=== PATIENT | male | born 1945 | race Caucasian/White ===

== ENCOUNTER → 2018-09-17 13:03 | Outpatient (CLI) | payer OTHER, SELFPAY ==
[2018-09-03 15:03] VITALS: BMI 30.9
--- NOTE | 2018-09-17 13:14 | ECHOD_ITS ---
Reason For Study: VALVE REPLACMENT EVAL Procedure This was a 2D Doppler, Color Flow transthoracic echocardiogram. Exam performed in department. Left Ventricle Moderate concentric left ventricular hypertrophy. The estimated ejection fraction is 60 %. Septal motion consistent with IVCD. Stage 2 diastolic dysfunction. No regional wall motion abnormalities noted. Right Ventricle Normal size and thickness. ICD or pacer leads identified within the right ventricle. Normal systolic function. Atria The left atrium is severely enlarged. Normal right atrium. ICD or pacer leads identified within the right atrium. Normal atrial septum. Mitral Valve Mild diffuse mitral valve thickening. Severe mitral annular calcification extending into the posterior leaflet. Mild (1+) mitral valve insufficiency. Tricuspid Valve Normal tricuspid valve. Mild (1+) tricuspid valve insufficiency. Right ventricular systolic pressure estimated to be 53 mmHg. Moderate pulmonary hypertension. Aortic Valve Bioprosthetic aortic valve. Stable appearing bioprosthetic aortic valve apparatus. Pulmonic Valve Normal pulmonic valve. Great Vessels Normal aortic root. Normal arch. Normal inferior vena cava. Inferior vena cava collapse with sniff. Pericardium/Pleural No pericardial effusion. MMode/2D Measurements & Calculations LVIDd: 3.3 cm IVSd: 1.7 cm LVOT diam: 2.0 cm LVIDs: 2.6 cm LVPWd: 1.5 cm LVOT area: 3.1 cm2 FS: 23.0 % Ao root diam: 4.3 cm LAV(MOD-bp): 102.5 ml LVAd ap4: 43.5 cm2 LA dimension: 4.8 cm LAV(MOD-bp) Indexed: 57.9 ml/m2 EDV(MOD-sp4): 159.5 ml LAV(MOD-sp2): 96.9 ml EDV(sp4-el): 173.0 ml LAV(MOD-sp4): 99.8 ml LVAs ap4: 29.9 cm2 ESV(MOD-sp4): 78.2 ml ESV(sp4-el): 83.9 ml EF(MOD-sp4): 51.0 % EF(sp4-el): 51.5 % SV(MOD-sp4): 81.3 ml SV(sp4-el): 89.1 ml LA A4 area: 27.0 cm2 RA A4 area: 18.9 cm2 Time Measurements MV dec time: 0.24 sec Doppler Measurements & Calculations MV E max tip: 123.8 cm/sec Lat Peak E' Tip: 4.7 cm/sec Med Peak E' Tip: 4.5 cm/sec MV A max tip: 112.4 cm/sec E/E' lat: 26.6 E/E' med: 27.4 MV E/A: 1.1 Ao V2 max: 266.7 cm/sec LV V1 max: 105.6 cm/sec SV(LVOT): 77.1 ml Ao max P.4 mmHg LV V1 max P.5 mmHg Ao V2 mean: 194.9 cm/sec LV V1 mean P.2 mmHg Ao mean P.3 mmHg LV V1 mean: 69.4 cm/sec Ao V2 VTI: 58.2 cm LV V1 VTI: 25.1 cm AI(I,D): 1.3 cm2 AI(V,D): 1.2 cm2 PA V2 max: 109.4 cm/sec TR max tip: 345.6 cm/sec TR max P.8 mmHg Interpretation Summary Moderate concentric left ventricular hypertrophy. The estimated ejection fraction is 60 %. Stage 2 diastolic dysfunction. The left atrium is severely enlarged. Mild (1+) mitral valve insufficiency. Mild (1+) tricuspid valve insufficiency. Right ventricular systolic pressure estimated to be 53 mmHg. Moderate pulmonary hypertension. Stable appearing bioprosthetic aortic valve apparatus. Compared to echo report dated 12/17/2012, LV function has improved from 25% to 60%. Ordering Physician: Marcos Russo Referring Physician: Marcos Russo Performed By: Jessica Mackenzie RDCS
[2018-09-17 14:14] LABS: AST(SGOT) 24 U/L (15-37); Alanine Aminotransfer ALT/SGPT 29 U/L (16-61); Albumin, Serum 3.9 g/dL (3.2-5.0); Alkaline Phosphatase 85 U/L (45-117); Cholesterol 264 mg/dL (200); Globulin 3.7 g/dL (2.2-4.2); High Density Lipoprotein 74 mg/dL; Protein, Total 7.6 g/dL (6.4-8.2); Triglycerides 79 mg/dL; Very Low Density Lipoprotein 16 mg/dL (5-40)
== END ==
PROVIDERS: Referring Provider Internal Medicine Cardiovascular Disease; Visit Provider Internal Medicine Cardiovascular Disease
DX: I25.10 Atherosclerotic heart disease of native coronary artery without angina pectoris (principal); Z95.0 Presence of cardiac pacemaker; Z95.1 Presence of aortocoronary bypass graft; Z95.3 Presence of xenogenic heart valve; E78.5 Hyperlipidemia, unspecified
CPT/HCPCS: 36415; 80061; 80076; 93306

== ENCOUNTER → 2019-05-20 08:56 | Outpatient (CLI) | payer OTHER, SELFPAY ==
[2019-04-14 15:28] VITALS: BMI 29.6
[2019-05-20 11:20] LABS: AST(SGOT) 21 U/L (15-37); Alanine Aminotransfer ALT/SGPT 39 U/L (16-61); Albumin, Serum 3.6 g/dL (3.2-5.0); Alkaline Phosphatase 79 U/L (45-117); Bilirubin, Direct 0.15 mg/dL (0.00-0.30); Cholesterol 231 mg/dL (200); Globulin 3.7 g/dL (2.2-4.2); High Density Lipoprotein 68 mg/dL; Protein, Total 7.3 g/dL (6.4-8.2); Triglycerides 141 mg/dL; Very Low Density Lipoprotein 28 mg/dL (5-40)
== END ==
PROVIDERS: Referring Provider Internal Medicine Cardiovascular Disease; Visit Provider Internal Medicine Cardiovascular Disease
DX: I25.10 Atherosclerotic heart disease of native coronary artery without angina pectoris (principal); E78.5 Hyperlipidemia, unspecified
CPT/HCPCS: 36415; 80061; 80076

== ENCOUNTER → 2024-10-28 | Outpatient (CLI) | payer SELFPAY, OTHER ==
--- NOTE | 2024-10-28 08:46 | ECHOCS_ITS ---
Reason For Study: Afib, Aflutter Procedure This was a 2D Doppler, Color Flow transthoracic echocardiogram. Myocardial strain analysis was performed in this exam to aid in the assessment of cardiac function. Contrast injection was performed. Exam performed in department. Left Ventricle Normal LV size. The left ventricular ejection fraction is 25 %. Apical wall motion abnormality may reflect pacemaker activation. Right Ventricle Normal RV size. ICD or pacer leads identified within the right ventricle. Normal systolic function. Atria The left atrium is severely enlarged. The right atrium is mildly enlarged. ICD or pacer leads identified within the right atrium. Mitral Valve There is moderate mitral annular calcification. Mild-Moderate (1-2+) eccentric mitral valve insufficiency. Tricuspid Valve Normal tricuspid valve. Mild to moderate (1-2+) tricuspid valve insufficiency. Pulmonary artery systolic pressure is 60 mmHg. Aortic Valve Bioprosthetic aortic valve. Pulmonic Valve Normal pulmonic valve. Mild (1+) pulmonic valve insufficiency. Great Vessels Normal aortic root. The pulmonary artery is normal size. and partially collapses. Pericardium/Pleural No pericardial effusion. Medication Diluted definity 3ml given slow IV push to enhance endocardial definition. MMode/2D Measurements & Calculations LVIDd: 4.1 cm IVSd: 1.4 cm LVOT diam: 1.9 cm LVIDs: 3.6 cm LVPWd: 1.0 cm RVDd: 3.6 cm FS: 13.4 % LVOT area: 2.7 cm2 asc Aorta Diam: 3.7 cm LAV(MOD-bp): 122.7 ml LVAd ap4: 36.0 cm2 LAV(MOD-bp) Indexed: 73.0 ml/m2 LVLd ap4: 8.3 cm LAV(MOD-sp2): 116.0 ml EDV(MOD-sp4): 128.0 ml LAV(MOD-sp4): 119.9 ml EDV(sp4-el): 133.4 ml LVAs ap4: 32.2 cm2 LVLs ap4: 8.4 cm ESV(MOD-sp4): 100.8 ml ESV(sp4-el): 104.9 ml EF(MOD-sp4): 21.2 % EF(sp4-el): 21.3 % SV(MOD-sp4): 27.2 ml SV(sp4-el): 28.5 ml LA A4 area: 31.9 cm2 SI(MOD-sp4): 16.1 ml/m2 LA dimension(2D): 5.2 cm RA A4 area: 23.5 cm2 TAPSE: 0.83 cm Doppler Measurements & Calculations MV E max tip: 118.7 cm/sec Lat Peak E' Tip: 4.8 cm/sec Med Peak E' Tip: 3.3 cm/sec E/E' lat: 24.9 E/E' med: 35.4 MV V2 max: 122.1 cm/sec Ao V2 max: 195.9 cm/sec LV V1 max: 107.0 cm/sec MV max P.0 mmHg Ao max P.4 mmHg LV V1 max P.6 mmHg MV V2 mean: 72.1 cm/sec Ao V2 mean: 144.0 cm/sec LV V1 mean P.4 mmHg MV mean P.6 mmHg Ao mean P.3 mmHg LV V1 mean: 70.4 cm/sec MV V2 VTI: 30.2 cm Ao V2 VTI: 34.6 cm LV V1 VTI: 19.1 cm AV (velocity ratio): 0.55 MVA(VTI): 1.7 cm2 AI(I,D): 1.5 cm2 AI(V,D): 1.5 cm2 SV(LVOT): 52.0 ml PA V2 max: 70.2 cm/sec TR max tip: 368.1 cm/sec TR max P.2 mmHg ECHO/Echo Complete W/ Contrast Interpretation Summary Normal LV size. The left ventricular ejection fraction is 25 %. The left atrium is severely enlarged. Pulmonary artery systolic pressure is 60 mmHg. Bioprosthetic aortic valve. The global longitudinal strain is severely abnormal. The global longitudinal st rain = -5.1% (abnormal). Ordering Physician: Simon Whipple Referring Physician: Simon Whipple Performed By: Yennifer Moreno, LAURACS, RVT
== END | disposition home or self-care (01) ==
PROVIDERS: Referring Provider Internal Medicine Cardiovascular Disease; Visit Provider Internal Medicine Cardiovascular Disease
DX: Z95.3 Presence of xenogenic heart valve (principal)
CPT/HCPCS: 93306; Q9957; A4216; C8929

== ENCOUNTER 2025-07-13 14:56 | Observation (INO) | payer OTHER, SELFPAY ==
[2025-07-13 15:46] VITALS: BP 168/93; PULSE 72; RESP 18; TEMP 36.8; O2SAT 96
[2025-07-13 15:47] VITALS: BMI 26.0
[2025-07-13 16:24] LABS: Mucous, Urine 0 SEEN /hpf (<or=2+)
--- NOTE | 2025-07-13 16:32 | EKG12_ITS ---
Test Reason : pre pacer Blood Pressure : */* mmHG Vent. Rate : 72 BPM Atrial Rate : 468 BPM P-R Int : * ms QRS Dur : 252 ms QT Int : 566 ms P-R-T Axes : * 102 111 degrees QTcB Int : 619 ms Ventricular-paced rhythm Abnormal ECG When compared with ECG of 13-Jul-2025 14:44, MANUAL COMPARISON REQUIRED DATA IS UNCONFIRMED Confirmed by CARLO MCDANIEL, SIMON ([id number]), material expeditor JESSE OTERO ([id number]) on 07/14/2025 8:14:48 AM Referred By: Simon Whipple Confirmed By: SIMON WHPIPLE MD
[2025-07-13 16:56] LABS: Color, Urine Yellow (Yellow); Glucose, Dipstick Normal (Normal); Ketone-Dipstick Negative (Negative); Leukocyte Esterase-Dipstick Negative /ul (Negative); Nitrite-Dipstick Negative (Negative); Occult Blood-Urine Negative /ul (Negative); Protein-Dipstick 30 mg/dl (Negative); Specific Gravity, Urine 1.020 (1.002-1.030); Urine Bilirubin Dipstick Negative (Negative)
[2025-07-13 17:24] LABS: Red Blood Cells-Urine 0-5 SEEN /hpf (0-5); Squamous Epithelial Cells - UA 0-5 SEEN /hpf (0-5)
--- NOTE | 2025-07-13 18:02 | CON.PCM.CA_ITS ---
Assessment & Plan Assessment/Plan (1) Malfunction of cardiac pacemaker battery: PLAN: He does have evidence of pacemaker battery malfunction following a recall. He is being admitted to have his pacemaker generator changed out within the next 24 hours. All attempts have been made to prevent any inhibition. (2) History of aortic valve replacement with bioprosthetic valve: PLAN: He is status post aortic valve replacement with a bioprosthetic valve this appears to be functioning quite well on his last echocardiogram which demonstrated reduced ejection fraction. (3) H/O coronary artery bypass surgery: PLAN: He is status post single-vessel coronary bypass surgery. He has not had any angina the plan is to continue the current medical therapy. (4) Longstanding persistent atrial fibrillation: PLAN: He does have longstanding persistent atrial fibrillation with an elevated chads Vascore. However he refuses to take any anticoagulation and we will continue with the current medical therapy. (5) Essential hypertension: PLAN: He has a history of hypertension at this time I would not suggest we make any changes to his medical therapy. (6) Cardiomyopathy: QUALIFIERS: Cardiomyopathy type: ischemic Qualified Code(s): I25.5 - Ischemic cardiomyopathy PLAN: His most recent echocardiogram in October 2024 showed LV function 25% and pulmonary artery systolic pressure 60 mmHg and severely abnormal global longitudinal strain at -5.1%. It was recommended in October 2024 that he begin additional medications for echocardiogram findings. He is unsure if he started such medications. We discussed guideline directed medical therapy in detail to include such medications as Entresto/losartan/lisinopril, spironolactone, SGLT2 inhibitor, or increasing carvedilol. Ideally he does need an implantable defibrillator but he refuses this as well. He declines medical therapy today. He declines additional medications today. Symptoms of fluid volume overload reviewed in detail. He was asked to call our office if soft symptoms occur to send prescription for loop diuretic. We will see him back in office in October 2025 to rediscuss medication. HPI Consult Data Date of Consult: 07/13/25 HPI Narrative HPI Narrative: ELEONORA PAT, is a 80 M who presents for admission due to pacemaker battery malfunction. He has history of coronary artery disease status post single-vessel bypass surgery with an SVG to diagonal, severe aortic stenosis status post aortic valve replacement with a # 25 mm B[place]il Moser valve, and closure of PFO and ascending aortoplasty at [facility] on 12/24/2015. He also has a history of permanent pacemaker placement on 12/30/2015 for complete heart block, hypertension, and hyperlipidemia. On account of recent [employer] advisory, patient had his device evaluated on 07/13/2025. He was noted to be in safety mode and per [employer] team it is recommended that he should be admitted and monitored until generator change, which is scheduled for 07/14/2025. He previously had device evaluated on 04/29/2025 that showed ongoing atrial fibrillation and no VT/VF episodes. Battery life was noted be 1.5 years. He states pain with chores that is located left side of his chest and lasts for minutes. This was a single event and he states improved once his constipation improved. He states mild lower extremity edema. He states dizziness when looking up cleaning his ceiling or bends over and stand back up. He denies palpitation, shortness of breath activity, shortness of breath at rest, or orthopnea. He denies lightheadedness, near-syncope, or syncope. He denies fatigue or weakness. [ ] [facility] Medical History Malfunction of cardiac pacemaker battery Cardiomyopathy Left ventricular hypertrophy Mitral annular calcification Secondary pulmonary arterial hypertension Longstanding persistent atrial fibrillation Essential hypertension Aortic stenosis with bicuspid valve Atherosclerotic heart disease of [place] coronary artery without angina pectoris Chronic combined systolic and diastolic congestive heart failure Complete heart block Hyperlipidemia Home Medications ?Medication ?Instructions ?Recorded ?Last Taken ?Type carvedilol 12.5 mg tablet 12.5 mg PO BID #180 tabs 07/13/25 Rx Allergy/AdvReac Type Severity Reaction Status Date / Time oxycodone AdvReac Severe Blurred Verified 07/13/25 15:50 vision, visual disturbances apixaban (From Eliquis) AdvReac GI upset Verified 07/13/25 15:50 Family History Mother , age 82 CAD (coronary artery disease) Diabetes CVA (cerebral vascular accident) Gangrene Sister Hypertension Sister Hypertension Surgical History H/O coronary artery bypass surgery (12/24/15) History of right and left heart catheterization (12/20/15) Cardiac pacemaker in situ (12/30/15) Status post patent foramen ovale closure (12/24/15) History of aortic valve replacement with bioprosthetic valve (12/24/15) Social History Smoking Status: Never smoker alcohol intake: never caffeine: No ROS Constitutional Constitutional: Denies fever(s) or weight loss Eyes Eyes: Reports systems reviewed and no addt'l complaints, except as documented ENT HEENT: Reports systems reviewed and no addt'l complaints, except as documented Cardiovascular Cardiovascular: Denies chest pain at rest, chest pain with activity, dyspnea at rest, dyspnea on exertion, edema, palpitations or paroxysmal nocturnal dyspnea Respiratory/Chest Respiratory/Chest: Denies dyspnea on exertion, productive cough, shortness of breath at rest or shortness of breath with exertion Gastrointestinal Gastrointestinal: Denies change in bowel habits, nausea, vomiting or weight changes Genitourinary Genitourinary: Denies difficulty urinating Musculoskeletal Musculoskeletal: Denies joint stiffness or muscle weakness Integumentary Integumentary: Denies lesions Neurologic Neurologic: Denies dizziness or syncope Psychiatric Psychiatric: Denies anxiety Endocrine Endocrinology: Denies excessive sweating or fatigue Hematologic/Lymphatic Hematologic/Lymphatic: Denies anemia Allergic/Immunologic Allergic/Immunologic: Denies seasonal rhinorrhea Physical Exam Const alert, oriented x3 and no apparent distress General Appearance: cooperative HEENT hearing grossly normal bilaterally Head and Scalp: atraumatic Eyes EOMs intact bilaterally Neck General: normal visual inspection Chest inspection of chest normal and palpation of chest normal Resp normal respiratory effort Auscultation: clear to auscultation bilaterally Cardio regular rate, regular rhythm, S1 normal heart sound and S2 normal heart sound Jugular Venous Distention: JVD GI normal to inspection, nondistended, normoactive bowel sounds Extremity normal capillary refill and no pedal edema Peripheral Pulses: Yes pulses 2+ throughout and femoral pulses present Skin no rashes or lesions noted Neuro oriented x3 and CN's II-XII intact bilaterally Psych Appearance: grossly normal and appropriate Objective Data Vital Signs: Vital Signs Temp Pulse Resp BP Pulse Ox O2 Del Method 98.2 F 72 18 168/93 H 96 Room Air 07/13/25 15:46 07/13/25 15:46 07/13/25 15:46 07/13/25 15:46 07/13/25 15:46 07/13/25 16:00 Oxygen Delivery Method Room Air Weight: 142 lb 6.698 oz Body Mass Index (BMI) 26.0 Lab / Micro Data Labs: Laboratory Results - last 24 hr 07/13/25 15:47: Urine Color Yellow, Urine Clarity Sl. Cloudy, Urine pH 6.0, Ur Specific [place] 1.020, Urine Protein 30 H, Urine Glucose (UA) Normal, Urine Ketones Negative, Urine Occult Blood Negative, Urine Nitrite Negative, Urine Bilirubin Negative, Urine Urobilinogen Normal, Ur Leukocyte Esterase Negative, Urine RBC 0-5 SEEN, Urine WBC 0-5 SEEN, Ur Squamous Epith Cells 0-5 SEEN, Urine Bacteria 0 SEEN, Urine Mucus 0 SEEN Cardiology Labs/Tests 07/13/25 15:47: Urine Color Yellow, Urine Clarity Sl. Cloudy, Urine pH 6.0, Ur Specific [place] 1.020, Urine Protein 30 H, Urine Glucose (UA) Normal, Urine Ketones Negative, Urine Occult Blood Negative, Urine Nitrite Negative, Urine Bilirubin Negative, Urine Urobilinogen Normal, Ur Leukocyte Esterase Negative, Urine RBC 0-5 SEEN, Urine WBC 0-5 SEEN Rhythm: EKG: ECHO: Stress Test: Cardiac Cath: PCI: CT Surgery: Holter monitor: EPS: PPM: CXR: Chest CT Scan: HAWK Risk Score for UA/STEMI Assesmment (YES = 1) Risk Stratification Applicable: No
[2025-07-13 18:26] LABS: Hematocrit 35.1 % (40-54); Hemoglobin 12.2 g/dL (13.0-16.5); Mean Corp Hgb Conc 34.8 g/dL (32-36); Mean Corpuscular Volume 83.6 fL (80-94); Mean Platelet Vol. 9.6 fl (6.2-12.0); Platelet Count 144 K/mm3 (150-450); RBC Distribution Width CV 12.9 % (11.6-14.6); RBC Distribution Width SD 39.0 fl (35.1-43.9); Red Blood Count 4.20 M/mm3 (4.6-6.2); White Blood Count 5.1 K/mm3 (4.4-11.0)
[2025-07-13 18:56] LABS: AST(SGOT) 23 U/L (<=37); Alanine Aminotransfer ALT/SGPT 18 U/L (<=46); Albumin, Serum 3.9 g/dL (3.4-4.8); Alkaline Phosphatase 85 U/L (40-129); Anion Gap 13 (5-15); BUN 22 mg/dL (4-19); BUN/Creat Ratio 21.0 RATIO (10-20); Calcium,Total 9.4 mg/dL (7.6-11.0); Carbon Dioxide 22.1 mmol/L (21.0-32.0); Chloride 104 mmol/L (98-108); Estimated Creatinine Clearance 44.48 ml/min (50-250); Globulin 2.6 g/dL (2.2-4.2); Glucose 170 mg/dL (70-99); Potassium 4.1 mmol/L (3.3-5.1)
[2025-07-13 20:45] VITALS: BP 160/84; PULSE 72; RESP 12; TEMP 36.7; O2SAT 94
[2025-07-14 03:15] VITALS: BP 158/95; PULSE 72; RESP 12; TEMP 36.9; O2SAT 94
--- NOTE | 2025-07-14 07:35 | NURSING ---
Report called to NATALYA Valderrama in [employer] lab[employer]
--- NOTE | 2025-07-14 08:46 | PN.CARD_ITS ---
Subjective Subjective Patient seen and evaluated. Underwent pacemaker generator change out today Objective Data Vital Signs: Vital Signs Temp Pulse Resp BP Pulse Ox O2 Del Method 98.4 F 72 12 158/95 H 94 Room Air 07/14/25 03:15 07/14/25 03:15 07/14/25 03:15 07/14/25 03:15 07/14/25 03:15 07/14/25 03:58 Oxygen Delivery Method Room Air Weight: 142 lb 6.698 oz Body Mass Index (BMI) 26.0 Intake & Output: Intake and Output for Last 24 Hours 07/12/25 07/13/25 07/14/25 23:59 23:59 23:59 Intake Total 120 / 120 Output Total 500 / 500 Balance 120 / 120 -500 / -500 Lab / Micro Data 07/13/25 18:04 07/13/25 18:04 Labs: Laboratory Results - last 24 hr 07/13/25 15:47: Urine Color Yellow, Urine Clarity Sl. Cloudy, Urine pH 6.0, Ur Specific [place] 1.020, Urine Protein 30 H, Urine Glucose (UA) Normal, Urine Ketones Negative, Urine Occult Blood Negative, Urine Nitrite Negative, Urine Bilirubin Negative, Urine Urobilinogen Normal, Ur Leukocyte Esterase Negative, Urine RBC 0-5 SEEN, Urine WBC 0-5 SEEN, Ur Squamous Epith Cells 0-5 SEEN, Urine Bacteria 0 SEEN, Urine Mucus 0 SEEN 07/13/25 18:04: WBC 5.1, RBC 4.20 L, Hgb 12.2 L, Hct 35.1 L, MCV 83.6, MCH 29.0, MCHC 34.8, RDW Std Deviation 39.0, RDW Coeff of Stephon 12.9, Plt Count 144 L, MPV 9.6, Sodium 139, Potassium 4.1, Chloride 104, Carbon Dioxide 22.1, Anion Gap 13, BUN 22 H, Creatinine 1.04, Estim Creat Clear Calc 44.48 L, Est GFR (MDRD) Non-Af 73, BUN/Creatinine Ratio 21.0 H, Glucose 170 H, Calcium 9.4, Total Bilirubin 0.43, AST 23, ALT 18, Alkaline Phosphatase 85, Total Protein 6.5, Albumin 3.9, Globulin 2.6, Albumin/Globulin Ratio 1.5 Cardiology Labs/Tests 07/13/25 15:47: Urine Color Yellow, Urine Clarity Sl. Cloudy, Urine pH 6.0, Ur Specific [place] 1.020, Urine Protein 30 H, Urine Glucose (UA) Normal, Urine Ketones Negative, Urine Occult Blood Negative, Urine Nitrite Negative, Urine Bilirubin Negative, Urine Urobilinogen Normal, Ur Leukocyte Esterase Negative, Urine RBC 0-5 SEEN, Urine WBC 0-5 SEEN 07/13/25 18:04: WBC 5.1, RBC 4.20 L, Hgb 12.2 L, Hct 35.1 L, MCV 83.6, MCH 29.0, MCHC 34.8, Plt Count 144 L, MPV 9.6, Sodium 139, Potassium 4.1, Chloride 104, Carbon Dioxide 22.1, Anion Gap 13, BUN 22 H, Creatinine 1.04, Est GFR (MDRD) Non-Af 73, BUN/Creatinine Ratio 21.0 H, Glucose 170 H, Calcium 9.4, Total Bilirubin 0.43 Rhythm: EKG: ECHO: Stress Test: Cardiac Cath: PCI: CT Surgery: Holter monitor: EPS: PPM: CXR: Chest CT Scan: Physical Exam Const alert, oriented x3 and no apparent distress General Appearance: cooperative HEENT hearing grossly normal bilaterally Head and Scalp: atraumatic Eyes EOMs intact bilaterally Neck General: normal visual inspection Chest inspection of chest normal and palpation of chest normal Resp normal respiratory effort Auscultation: clear to auscultation bilaterally Cardio regular rate, regular rhythm, S1 normal heart sound and S2 normal heart sound Jugular Venous Distention: JVD GI normal to inspection, nondistended, normoactive bowel sounds Extremity normal capillary refill and no pedal edema Peripheral Pulses: Yes pulses 2+ throughout and femoral pulses present Skin no rashes or lesions noted Neuro oriented x3 and CN's II-XII intact bilaterally Psych Appearance: grossly normal and appropriate Assessment & Plan Assessment/Plan (1) Malfunction of cardiac pacemaker battery: PLAN: He does have evidence of pacemaker battery malfunction following a recall. His pacemaker generator was changed out today. Functioning well. He will be discharged for outpatient follow-up. (2) History of aortic valve replacement with bioprosthetic valve: PLAN: He is status post aortic valve replacement with a bioprosthetic valve this appears to be functioning quite well on his last echocardiogram which demonstrated reduced ejection fraction. (3) H/O coronary artery bypass surgery: PLAN: He is status post single-vessel coronary bypass surgery. He has not had any angina the plan is to continue the current medical therapy. (4) Longstanding persistent atrial fibrillation: PLAN: He does have longstanding persistent atrial fibrillation with an elevated chads Vascore. However he refuses to take any anticoagulation and we will continue with the current medical therapy. (5) Essential hypertension: PLAN: He has a history of hypertension at this time I would not suggest we make any changes to his medical therapy. (6) Cardiomyopathy: QUALIFIERS: Cardiomyopathy type: ischemic Qualified Code(s): I 25.5 - Ischemic cardiomyopathy PLAN: His most recent echocardiogram in October 2024 showed LV function 25% and pulmonary artery systolic pressure 60 mmHg and severely abnormal global longitudinal strain at -5.1%. It was recommended in October 2024 that he begin additional medications for echocardiogram findings. He is unsure if he started such medications. We discussed guideline directed medical therapy in detail to include such medications as Entresto/losartan/lisinopril, spironolactone, SGLT2 inhibitor, or increasing carvedilol. Ideally he does need an implantable defibrillator but he refuses this as well. He declines medical therapy today. He declines additional medications today. Symptoms of fluid volume overload reviewed in detail. He was asked to call our office if soft symptoms occur to send prescription for loop diuretic. We will see him back in office in October 2025 to rediscuss medication.
--- NOTE | 2025-07-14 08:47 | DCINST_ITS ---
Discharge Instructions DC O2, CPAP, BIPAP needs Home O2 Discharge instructions: No Dressing / Incision Discharge Activity: May Not Drive May shower in (days): 3 Additional Activity Instructions:: May shower or bathe on [day 3]. Do not scrub the incision or soak in the tub. Just wash with soap and let the water run over the incision. Gently pat dry with towel. Medications: Take your pain medication as directed. Refer to your discharge instruction sheet for a list of medications you are to take. Dressing / Incision Call your doctor if your incision/area has: Continuous Slow Oozing, Sudden Increased Bleeding, Increased Pain/ Swelling, Increased Redness, Foul Smelling Discharge and Swelling at the incision site Call your doctor if you observe: Fever of 101 or Higher, Shortness of breath, Dizziness, Fainting spells, Swelling in the ankles, Chest pain, Prolonged hiccupping and Increased palpitations (irregular heartbeat) Suture Line Care: Avoid Pulling/Pushing and Avoid Pinching/Bending Change Dressing in: do not change dressing Cleanse incision/area with: Do not get Incision Wet and Keep Dressing Clean & Dry Additional Dressing/Incision Instructions:: When dressing is removed, wash and dry incision. Keep covered with a light bandage if it is rubbing against your clothing. Do not cover the incision with an airtight bandage. Change the bandage daily. Do not remove steri strips. The strips will fall off on their own. Follow Up Care Please Follow Up With: Simon Whipple MD When: Pacer follow-up on July 20 at 10 AM. Test Results: Test results from this visit will be discussed in further detail at your follow- up appointment, if applicable. Discharge Plan Admission Admit Date/Time: 07/13/25 14:56 Attending Provider: Simon Whipple Primary Care Provider: Care Physician,Marlena Primary Discharge Orders/Prescriptions Prescriptions: No Action carvedilol 12.5 mg tablet 12.5 mg PO BID Qty: 180 3RF Rx Instructions: must administer with a meal/food Referrals / Follow Up: Care Physician,No Primary [Primary Care Provider, Medical] Disposition Disposition (needs filled in before D/C Order can be placed): Home, Self Care
[2025-07-14 09:46] VITALS: BP 164/98; PULSE 70; RESP 18; TEMP 36.6; O2SAT 97
--- NOTE | 2025-07-14 09:53 | CASEMGMT ---
RN CM into pt room, pt sitting up in bed in no distress. and daughter at bedside, nurse in the room. Pt agreeable to discussing DC plan. Pt denies needs at this time. 6 clicks - 24, on RA. Family states they will call for transportation once they are able to leave, deny transport needs. Deny questions at this time.
[2025-07-14 11:05] VITALS: BP 151/92; PULSE 70; RESP 16; TEMP 36.1; O2SAT 97
[2025-07-14 11:45] VITALS: BP 176/88; PULSE 70; RESP 16; TEMP 36.4; O2SAT 99
== END 2025-07-14 12:23 | disposition home or self-care (01) ==
PROVIDERS: Admitting Provider Internal Medicine Cardiovascular Disease; Referring Provider Internal Medicine Cardiovascular Disease; Visit Provider Internal Medicine Cardiovascular Disease
DX: Z45.010 Encounter for checking and testing of cardiac pacemaker pulse generator [battery] (principal); I11.0 Hypertensive heart disease with heart failure; I50.42 Chronic combined systolic (congestive) and diastolic (congestive) heart failure; I27.21 Secondary pulmonary arterial hypertension; I48.11 Longstanding persistent atrial fibrillation; Z82.49 Family history of ischemic heart disease and other diseases of the circulatory system; Z95.2 Presence of prosthetic heart valve; E78.5 Hyperlipidemia, unspecified; I25.10 Atherosclerotic heart disease of native coronary artery without angina pectoris; T82.518A Breakdown (mechanical) of other cardiac and vascular devices and implants, initial encounter; Y71.2 Prosthetic and other implants, materials and accessory cardiovascular devices associated with adverse incidents; I25.5 Ischemic cardiomyopathy; Z95.1 Presence of aortocoronary bypass graft
CPT/HCPCS: 33228; 36415; 80053; 81001; 85027; 93005; 99152; 99153; 99221; G0378